=== PATIENT | male | born 1975 | race Caucasian/White ===

== ENCOUNTER 2018-01-31 21:18 | Emergency (ER) | payer OTHER ==
[2018-01-31 21:31] VITALS: TEMP 97.8; BMI 26.4
--- NOTE | 2018-01-31 21:33 | PDOC ---
Rapid Medical Evaluation Time Seen by Provider: 01/31/18 21:23 Medical Evaluation: Allergies Allergy/AdvReac Type Severity Reaction Status Date / Time No Known Allergies Allergy Verified 02/11/13 15:56 01/31/18 21:24 I have performed a brief in-person evaluation of this patient. The patient presents with a chief complaint of: anxiety w/ insomnia and anorexia x 3 weeks, not currently on medications. Endorses h/o anxiety since in his 20s Pertinent physical exam findings: Appears anxious w/ HR of 120s and BP 162/104 I have ordered the following:ekg/labs/TSH The patient will proceed to the ED for further evaluation.
--- NOTE | 2018-01-31 22:17 | PDOC ---
History of Present Illness - General Chief Complaint: Psychiatric Stated Complaint: HIGH BP Time Seen by Provider: 01/31/18 21:23 History Source: Patient - History of Present Illness Initial Comments: 01/31/18 22:13 42 y.o. male with a PMH of anxiety presents with a 3 week h/o anxiety, insomnia and intermittent RLE muscle spasms. Patient reports anxiety in regards to the well-being of his child as well as the passing of his girlfriend's mother a few weeks previous. Patient notes he has a h/o associated high blood pressures with his anxiety and he measures his pressures intermittently at home -- his last BP was 120's/80's two day previous. Patient denies any chest pain, shortness of breath, headache, visual changes. NKDA Surgical: denies Social: nicotine: 1 ppd; social alcohol 2-3 drinks weekly; denies recreational drugs Past History - Past Medical History Allergies/Adverse Reactions: Allergies Allergy/AdvReac Type Severity Reaction Status Date / Time No Known Allergies Allergy Verified 01/31/18 21:31 Home Medications: Ambulatory Orders LORazepam [Ativan] 0.5 mg PO DAILY #3 tablet MDD 1 01/31/18 - Suicide/Smoking/Psychosocial Hx Smoking Status: Yes Smoking History: Current some day smoker Have you smoked in the past 12 months: Yes Number of Cigarettes Smoked Daily: 4 Information on smoking cessation initiated: No Hx Alcohol Use: No Drug/Substance Use Hx: No Review of Systems - Review of Systems Constitutional: No: Chills, Fever HEENTM: No: Recent change in vision, Double Vision Respiratory: No: Cough, Orthopnea, Shortness of Breath, Stridor, Wheezing Cardiac (ROS): No: Chest Pain, Irregular Heart Rate, Lightheadedness, Palpitations, Syncope ABD/GI: No: Constipated, Diarrhea, Nausea, Vomiting : No: Burning, Dysuria Neurological: Yes: Paresthesia. No: Headache, Numbness, Tingling, Tremors, Weakness Psychiatric: Yes: Anxiety All Other Systems: Reviewed and Negative *Physical Exam - Vital Signs Last Vital Signs Temp Pulse Resp BP Pulse Ox 97.8 F 125 H 16 165/124 100 01/31/18 21:23 01/31/18 21:23 01/31/18 21:23 01/31/18 21:23 01/31/18 21:23 - Physical Exam General Appearance: Yes: Nourished, Appropriately Dressed HEENT: positive: EOMI, SONY Neck: positive: Tender, Supple Respiratory/Chest: positive: Lungs Clear Cardiovascular: positive: S1, S2, Tachycardia Gastrointestinal/Abdominal: positive: Normal Bowel Sounds, Soft Extremity: positive: Normal Capillary Refill, Normal Inspection Integumentary: positive: Normal Color, Dry, Warm Neurologic: positive: Fully Oriented, Alert ED Treatment Course - LABORATORY CBC & Chemistry Diagram: 01/31/18 22:10 01/31/18 22:10 Medical Decision Making - Medical Decision Making 01/31/18 22:18 42 y.o. male - hypertensive @ presentation - BP 165/124. EKG shows peaked T waves on V2, V3 concerning for hyperkalemia vs. normal variant vs ischemia. Ischemia less likely as patient denies CP, no cardiac history, limited RF. Will obtain CMP reassess. 01/31/18 22:18 CMP shows K+ 4.4; patient counseled extensively by Dr. Tomlinson on sleep hygiene. 02/01/18 00:10 Repeat BP 160's/100's. Will discharge home with return precautions, Ativan and referral to psychiatry. *DC/Admit/Observation/Transfer Diagnosis at time of Disposition: Hypertension - Discharge Dispostion Disposition: HOME Condition at time of disposition: Good Admit: No - Prescriptions Prescriptions: LORazepam [Ativan] 0.5 mg PO DAILY #3 tablet MDD 1 - Referrals Referrals: Kinga Medina MD [Staff Physician] - - Patient Instructions Additional Instructions: Please follow up with your primary care doctor in the next 3 days. Continue to measure your blood pressure at home and return to the Emergency Department should your blood pressures be elevated over 140's/100's. A referral has been provided to psychiatry for further evaluation of your anxiety. - Post Discharge Activity
[2018-01-31 22:20] LABS: BASO % 0.6 % (0-2.0); EOS % 1.4 % (0-4.5); HEMATOCRIT 47.5 % (35.4-49); LYMPH % 18.7 % (8-40); MCH 27.7 pg (25.7-33.7); MCHC 33.6 g/dl (32.0-35.9); MEAN CELL VOLUME 82.5 fl (80-96); MEAN PLT VOLUME 7.4 fl (7.5-11.1); MONO % 5.2 % (3.8-10.2); NEUT % 74.1 % (42.8-82.8); PLATELET COUNT 278 K/MM3 (134-434); RBC 5.76 M/mm3 (4.00-5.60); RDW 13.1 % (11.9-15.9); WHITE BLOOD COUNT 9.1 K/mm3 (4.0-10.0)
[2018-01-31 22:51] LABS: ALBUMIN 4.5 g/dl (3.4-5.0); ANION GAP 10 (8-16); BLOOD UREA NITROGEN 14 mg/dL (7-18); CALCIUM 9.5 mg/dL (8.5-10.1); CHLORIDE 101 mmol/L (98-107); CO2 29 mmol/L (21-32); CREATININE 1.1 mg/dL (0.7-1.3); GLUCOSE,RANDOM 103 mg/dL (74-106); POTASSIUM 4.4 mmol/L (3.5-5.1); SGOT/AST 17 U/L (15-37); SGPT/ALT 43 U/L (12-78); SODIUM 140 mmol/L (136-145)
[2018-01-31 22:53] LABS: ALK PHOS 98 U/L (45-117); BILIRUBIN,TOTAL 0.4 mg/dL (0.2-1.0); TOT PROT 8.3 g/dl (6.4-8.2)
--- NOTE | 2018-01-31 23:55 | PDOC ---
Attending Attestation - Resident Resident Name: Christine Philip - ED Attending Attestation I have performed the following: I have examined & evaluated the patient, The case was reviewed & discussed with the resident, I agree w/resident's findings & plan, Exceptions are as noted - HPI HPI: 01/31/18 23:51 42yoM hx of anxiety, never in formal treatment presents w/ difficulty sleeping in setting of acute life stressors and poor sleep at baseline. 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 Child up until midnight, girlfriend regularly up unil 3-4am. poor sleep hygiene in general. High nicotine and caffiene intake, lights on, noisy house at night, TV/screens before bed, etc. pt feeling ill/jittery from sleeplessness. approx 2-3h per night of restless sleep. no depression/si/hi/ah/vh. AF, slight HTN, likely white coat per history. normal PE EKG w/ concern for peaked twaves K+ WNL 42yoM w/ anxiety and sleplessness in setting of life stressors. - labs screen for hyper K in setting of EKG findings. - long discussion re: sleep hygiene, caffiene and nicotene reduction. - pt would like contiact information for psych. - Physicial Exam PE: 01/31/18 23:55 as above - Medical Decision Making 01/31/18 23:55 as above
[2018-02-01 00:08] VITALS: BP 165/100; PULSE 96
--- NOTE | 2018-02-02 20:30 | EKG ---
Test Reason : Blood Pressure : / mmHG Vent. Rate : 107 BPM Atrial Rate : 107 BPM P-R Int : 136 ms QRS Dur : 084 ms QT Int : 316 ms P-R-T Axes : 058 050 007 degrees QTc Int : 421 ms SINUS TACHYCARDIA OTHERWISE NORMAL ECG NO PREVIOUS ECGS AVAILABLE Confirmed by NAN ANGEL MD ([id number]) on 02/02/2018 8:30:30 PM Referred By: Confirmed By:NAN ANGEL MD
== END 2018-02-01 00:46 | disposition home or self-care (01) ==
LOC: JER 21:18
DX: I10 Essential (primary) hypertension (principal); F41.8 Other specified anxiety disorders
CPT/HCPCS: 36415; 80053; 84443; 85025; 93005; 93010; 99284-25

== ENCOUNTER 2022-05-01 08:52 | Emergency (ER) | payer OTHER ==
[2022-05-01 09:07] VITALS: BMI 25.8
[2022-05-01] MEDS ORDERED: ALPRAZolam 1 MG TABLET PO PRN (09:51)
[2022-05-01] MEDS ORDERED: ALPRAZolam 1 MG TABLET PO ONE (10:59)
[2022-05-01] MEDS ORDERED: ALPRAZolam 0.25 MG TABLET ONE (11:14)
[2022-05-01] MEDS ORDERED: FLUoxetine HCL 10 MG CAPSULE PO ONE (12:58)
[2022-05-01 13:52] VITALS: BP 119/81; PULSE 64; TEMP 98.1
== END 2022-05-01 14:02 | disposition home or self-care (01) ==
LOC: JER 08:52
DX: F41.1 Generalized anxiety disorder (principal)
CPT/HCPCS: 93005; 93010; 99283-25

== ENCOUNTER 2022-05-16 20:10 | Emergency (ER) | payer OTHER ==
[2022-05-16 20:32] VITALS: BP 144/90; PULSE 87; TEMP 98.2; BMI 24.3
[2022-05-16 22:13] LABS: BASO % 0.4 % (0-2.0); EOS % 1.7 % (0-4.5); HEMATOCRIT 47.5 % (35.4-49); HEMOGLOBIN 15.9 GM/dL (11.7-16.9); LYMPH % 19.7 % (8-40); MCH 27.5 pg (25.7-33.7); MCHC 33.4 g/dl (32.0-35.9); MEAN CELL VOLUME 82.1 fl (80-96); MEAN PLT VOLUME 6.4 fl (7.5-11.1); MONO % 6.4 % (3.8-10.2); NEUT % 71.8 % (42.8-82.8); PLATELET COUNT 286 10^3/uL (134-434); RBC 5.78 M/mm3 (4.00-5.60); RDW 13.2 % (11.9-15.9); WHITE BLOOD COUNT 8.1 K/mm3 (4.0-10.0)
[2022-05-16 22:35] LABS: ALBUMIN 4.2 g/dl (3.4-5.0); BLOOD UREA NITROGEN 11.8 mg/dL (7-18); CALCIUM 9.2 mg/dL (8.5-10.1)
[2022-05-16 22:38] LABS: CREATININE 1.1 mg/dL (0.55-1.3)
[2022-05-16 22:40] LABS: BILIRUBIN,TOTAL 0.2 mg/dL (0.2-1); TOT PROT 7.3 g/dl (6.4-8.2)
== END 2022-05-16 23:33 | disposition home or self-care (01) ==
LOC: JER 20:10
DX: G47.00 Insomnia, unspecified (principal)
CPT/HCPCS: 36415; 80053; 84439; 84443; 85025; 99283-25

== ENCOUNTER 2022-05-19 04:51 | Emergency (ER) | payer OTHER ==
[2022-05-19 05:25] VITALS: BP 151/111; PULSE 78; BMI 23.6
[2022-05-19 06:12] VITALS: TEMP 98.1
== END 2022-05-19 06:16 | disposition home or self-care (01) ==
LOC: JER 04:51
DX: G47.00 Insomnia, unspecified (principal); F45.9 Somatoform disorder, unspecified
CPT/HCPCS: 71046-TC-FY; 99283-25

== ENCOUNTER 2022-05-30 19:34 | Emergency (ER) | payer OTHER ==
[2022-05-30 19:49] VITALS: BP 127/89; PULSE 91; TEMP 98; BMI 23.3
== END 2022-05-30 22:12 | disposition home or self-care (01) ==
LOC: JER 19:34
DX: K59.00 Constipation, unspecified (principal)
CPT/HCPCS: 74019-TC-FY; 99283-25